=== PATIENT | male | born 1950 | race Caucasian/White ===

== ENCOUNTER 2024-02-26 10:12 | Emergency (ER) | payer MEDICARE, MEDICAID ==
[~2024-02-26] VITALS: Ht 170.2 cm; Wt 77.4 kg
[~2024-02-26 10:12] MED LIST: AMLO-382 PO; NORCO10T PO
[2024-02-26 10:21] VITALS: BP 132/90; PULSE 98; RESP 17; O2SAT 94
[2024-02-26 11:53] VITALS: TEMP 97.7
== END 2024-02-26 11:55 | disposition home or self-care (01) ==
LOC: ER 10:12
DX: H61.21 Impacted cerumen, right ear (principal); G89.29 Other chronic pain; F10.90 Alcohol use, unspecified, uncomplicated; Z79.899 Other long term (current) drug therapy; Z60.2 Problems related to living alone; Z85.118 Personal history of other malignant neoplasm of bronchus and lung
CPT/HCPCS: 99281